=== PATIENT | male | born 1990 | race Caucasian/White ===

== ENCOUNTER 2019-05-18 12:19 | Emergency (ER) | payer BC ==
[~2019-05-18] VITALS: Ht 165.1 cm; Wt 106.6 kg
[~2019-05-18 12:19] MED LIST: ACETAMINOPHEN-1 EAC1 PO; AMOXICILLIN875 MG; DEPAKOTE 250MG250 M1 PO; FLEXERIL PO; HYDROCODONE-AP1 EAC6 PO; KEFLEX500 MG PO; METAXALL800 MG PO; MULTI-VITAMIN1 EAC5 PO; PERCOCET 5-3251 EACH PO; PREDNISONE 20 M20 MG PO; TESSALON PERLE100 MG PO; ULTRAM 50MG TAB50 MG PO
[2019-05-18] MEDS ORDERED: MULTIVITAMINS PO (12:33)
[2019-05-18] MEDS ORDERED: NAPROSYN500 MG PO (14:02)
[2019-05-18 14:10] VITALS: BP 124/50
== END 2019-05-18 14:11 | disposition home or self-care (01) ==
LOC: M.ERS 12:19
DX: M94.0 Chondrocostal junction syndrome [Tietze] (principal); M54.5 Low back pain; F90.9 Attention-deficit hyperactivity disorder, unspecified type; F32.9 Major depressive disorder, single episode, unspecified; Z90.49 Acquired absence of other specified parts of digestive tract